=== PATIENT | female | born 1945 | race Caucasian/White ===

== ENCOUNTER → 2016-04-30 09:31 | Outpatient (CLI) | payer MEDICARE, OTHER ==
[2012-01-31 20:13] VITALS: BMI 34.7
== END | disposition home or self-care (01) ==
LOC: D.MRI 09:31
DX: R27.8 Other lack of coordination (principal)

== ENCOUNTER → 2018-06-01 09:31 | Outpatient (CLI) | payer MEDICARE, OTHER ==
[2012-01-31 20:13] VITALS: BMI 34.7
== END | disposition home or self-care (01) ==
LOC: D.US 09:31
PROVIDERS: ATTEND Family Medicine
DX: E04.1 Nontoxic single thyroid nodule (principal)

== ENCOUNTER → 2018-06-28 17:04 | Outpatient (CLI) | payer MEDICARE, OTHER ==
[2012-01-31 20:13] VITALS: BMI 34.7
== END | disposition home or self-care (01) ==
LOC: D.MAMMO 09:30
PROVIDERS: ATTEND Family Medicine
DX: Z12.31 Encounter for screening mammogram for malignant neoplasm of breast (principal)

== ENCOUNTER → 2018-08-02 08:40 | Outpatient (CLI) | payer MEDICARE, OTHER ==
[2012-01-31 20:13] VITALS: BMI 34.7
--- NOTE | 2018-06-13 08:23 | NUR ---
THE PATIENT'S APPOINTMENT WAS ORIGINALLY FOR 06/13/18 AT 0800. UPON SPEAKING WITH THE PATIENT AND HAVING HER FILL OUT A QUESTIONNAIRE, SHE STATED SHE HAD AT CT SCAN WITH IV CONTRAST ON 05/05/18. PER THYROID UPTAKE AND SCAN PROTOCOL, PATIENTS CANNOT HAVE INTRAVENOUS CONTRAST WITHIN 2 MONTHS OF THIS EXAM. INFORMED PATIENT OF THIS AND EXPLAINED EXAM TO MEETA, ANSWERED QUESTIONS, AND ALSO INFORMED HER IT WAS 2 DAY EXAM. SHE STATE SHE WAS OKAY WITH RESCHEDULING AND STATED SHE WOULD PREFER IT TO NOT BE ON A TUESDAY OR TUESDAY. RESCHEDULED THE PATIENT START DATE FOR 07/05/18 AT 0900. GAVE HER ALL THE INFORMATION ALONG WITH THE DEPARTMENTS AND SCHEDULINGS PHONE NUMBER INCASE SHE HAD ANY MORE QUESTIONS OR NEEDED TO RESCHEDULE.
== END | disposition home or self-care (01) ==
LOC: D.NM 06-13 07:35
PROVIDERS: ATTEND Family Medicine
DX: E04.1 Nontoxic single thyroid nodule (principal)

== ENCOUNTER 2018-08-30 19:00 | Outpatient (CLI) | payer MEDICARE, OTHER ==
[2012-01-31 20:13] VITALS: BMI 34.7
== END 2018-08-30 23:59 | disposition home or self-care (01) ==
LOC: D.MAMMO 19:00
PROVIDERS: ATTEND Family Medicine
DX: R92.1 Mammographic calcification found on diagnostic imaging of breast (principal)